=== PATIENT | female | born 1935 | race Caucasian/White ===

== ENCOUNTER → 2016-12-17 | Outpatient (CLI) | payer MEDICARE ==
[~2016-12-17] MED LIST: ASPI81 PO; ATOR80TA41 PO; CARV12.5 PO; DIPH1TAB36 PO; HYDR12.56 PO; ISOS30 PO; LOSA25TA31 PO; NITR.4 SL; PRAZ1CAP PO
[2016-12-17 11:48] LABS: ALT (GPT) 22 U/L (10-53); ANION GAP 8 MEQ/L (5-15); AST (GOT) 16 U/L (15-37); BICARBONATE 30.3 MEQ/L (21.0-32.0); BLOOD UREA NITROGEN 34 MG/DL (7-18); CHLORIDE 104 MEQ/L (98-107); GLOMERULAR FILTRATION RATE 36 ML/MIN (>89); GLUCOSE,FASTING 94 MG/DL (74-99); POTASSIUM 3.8 MEQ/L (3.5-5.1); SODIUM (NA) 142 MEQ/L (136-145)
[2016-12-17 11:51] LABS: ALKALINE PHOSPHATASE 92 U/L (45-117); HDL CHOLESTEROL 56.6 MG/DL (40.0-60.0); LDL CHOLESTEROL 84 MG/DL (0-99); TOTAL BILIRUBIN ADULT 0.6 MG/DL (0.2-1.0)
[2016-12-17 11:57] LABS: CREATINE KINASE 100 U/L (26-192)
== END ==
LOC: PLAB 08:01
PROVIDERS: ATTEND Internal Medicine Interventional Cardiology
DX: I65.29 Occlusion and stenosis of unspecified carotid artery (principal); R06.09 Other forms of dyspnea; I10 Essential (primary) hypertension; I34.0 Nonrheumatic mitral (valve) insufficiency; E78.2 Mixed hyperlipidemia; I25.2 Old myocardial infarction; I51.81 Takotsubo syndrome; Z68.27 Body mass index [BMI] 27.0-27.9, adult
CPT/HCPCS: 36415; 80053; 80061; 82550

== ENCOUNTER → 2017-04-06 | Day surgery (SDC) | payer MEDICARE ==
[~2017-04-06] MED LIST changes: +BUPIVACAINE/EPINEPHRINE 0.5% PF 10 ML VIAL ONE; +KETOROLAC TROMETHAMINE 30 MG/ML (IVP) VIAL IV PUSH ONE; +LACTATED RINGER'S 1000 ML INJ 1,000 ML ONE; +LIDOCAINE 1%/EPINEPHrine 1:100,000 SOLN 20 ML VIAL ONE; +ONDANSETRON HCL 4 MG/2 ML VIAL IV PUSH ONE; +PROPOFOL 200 MG/20 ML AMP IV ONE; +VANCOMYCIN HCL 1000 MG VIAL ONE; +ceFAZolin INJ 1,000 MG VIAL ONE
--- NOTE | 2017-04-06 11:26 | MP ---
cc: WILLIS DEE M.D., GEORGE MD PARKS, JEFFREY D. M.D. DATE OF SURGERY: 04/06/2017 PROCEDURE Wide local excision right upper back, recurrent basal cell carcinoma. PREOPERATIVE DIAGNOSIS Recurrent basal cell carcinoma right upper back, large lesion. POSTOPERATIVE DIAGNOSIS Recurrent basal cell carcinoma right upper back, large lesion. ANESTHESIA LMA. SURGEON Dr. Dee. ESTIMATED BLOOD LOSS Less than 30 mL. FLUIDS 550 mL crystalloid. COMPLICATIONS None. DRAINS None. SPECIMEN Skin and subcutaneous tissue to pathology. Dimension of specimen 5 x 15 cm. PROCEDURE IN DETAIL The patient was taken to the operating room after marking the correct site and having this confirmed by the patient. She underwent laryngeal mask anesthesia and then was positioned on the operating table in the left lateral decubitus position with a beanbag. The skin was then sterilely prepped and draped. Time-out was taken confirming the correct patient, site and procedure to be performed. Skin and subcutaneous tissue was infiltrated with local anesthetic and a longitudinal ellipse was made including the lesion with a least 1 cm on either side past the visual edge of the tumor. The dissection was carried down to the fascia and the skin then undermined. The specimen was oriented with Silk sutures. The wound was then closed in two layers with interrupted 2-0 Vicryl suture and the skin closed with 5-0 PDS in a running subcuticular fashion. The wound was dressed with Steri-Strips and the patient was taken back to the recovery room in stable condition. Sponge, needle and instrument counts were reported to be correct. The patient tolerated the procedure well. MD JOVI Sarabia/TLL /11:10 AM /11:15 AM
== END | disposition home or self-care (01) ==
LOC: ESDC 06:45
PROVIDERS: ATTEND Surgery Trauma Surgery
DX: C44.519 Basal cell carcinoma of skin of other part of trunk (principal)
CPT/HCPCS: 00300; 11606; 88305; J0690; J1885; J2405; J3010; J3370; J7120

== ENCOUNTER → 2017-06-22 | Outpatient (CLI) | payer MEDICARE ==
[~2017-06-22] MED LIST changes: -BUPIVACAINE/EPINEPHRINE 0.5% PF 10 ML VIAL ONE; -KETOROLAC TROMETHAMINE 30 MG/ML (IVP) VIAL IV PUSH ONE; -LACTATED RINGER'S 1000 ML INJ 1,000 ML ONE; -LIDOCAINE 1%/EPINEPHrine 1:100,000 SOLN 20 ML VIAL ONE; -ONDANSETRON HCL 4 MG/2 ML VIAL IV PUSH ONE; -PROPOFOL 200 MG/20 ML AMP IV ONE; -VANCOMYCIN HCL 1000 MG VIAL ONE; -ceFAZolin INJ 1,000 MG VIAL ONE
[2017-06-22 13:59] LABS: ANION GAP 7 MEQ/L (5-15); AST (GOT) 20 U/L (15-37); BICARBONATE 28.2 MEQ/L (21.0-32.0); BLOOD UREA NITROGEN 21 MG/DL (7-18); CHLORIDE 109 MEQ/L (98-107); GLOMERULAR FILTRATION RATE 42 ML/MIN (>89); GLUCOSE,FASTING 97 MG/DL (74-99); POTASSIUM 3.9 MEQ/L (3.5-5.1); SODIUM (NA) 144 MEQ/L (136-145)
[2017-06-22 14:03] LABS: ALKALINE PHOSPHATASE 97 U/L (45-117); ALT (GPT) 23 U/L (10-53); CREATINE KINASE 108 U/L (26-192); HDL CHOLESTEROL 59.9 MG/DL (40.0-60.0); LDL CHOLESTEROL 72 MG/DL (0-99); TOTAL BILIRUBIN ADULT 0.6 MG/DL (0.2-1.0)
== END ==
LOC: PLAB 08:35
PROVIDERS: ATTEND Internal Medicine Interventional Cardiology
DX: E78.2 Mixed hyperlipidemia (principal); Z79.899 Other long term (current) drug therapy
CPT/HCPCS: 36415; 80053; 80061; 82550